=== PATIENT | male | born 1935 | race Caucasian/White ===

== ENCOUNTER 2022-04-24 07:57 | Outpatient (CLI) | payer MEDICARE, BC, SELFPAY ==
--- OUTSIDE RECORDS SUMMARY | 2022-04-24 08:06 | XMS_ITS | Continuity of Care Document ---
:1935 Author Organization [facility] Address [address] [place] [address] Phone Care Team Providers Name Role Phone Augustine Goodrich OD Unavailable Unavailable Allergies, Adverse Reactions, Alerts Substance Reaction Status Criticality PENICILLIN swellingswelling Active No Information Medications Medication Instructions Dosage Effective Dates Status Comment s (start - stop) OMEPRAZOLE take 2 capsule by Not Available - Active (unknown strength) oral route every day before a meal Procedures Procedure Date Scan Computerized; Retina Determ Refractive State Est Pt Complete Postop F/u Visit Incld Global Est Pt Detailed New Pt Complete Advance Directives Directive Yes / No Effective Date File Name No Information Encounters Encounter Practice Location Reason(s) Diagnoses Date Provider Provide rs Description For Visit Copied on Encounter [facility] Dilated Regular [facility] Eye [place], [place] eye exam astigmatism, [place]. Provid er: [address] (chief bilateralDrusen 1 [address] [facility] complaint) (degenerative) Kay[address], [place], [place], Refraction of macula, Rd, [place], [place], [address] [id number], [place] (chief bilateral Kayleigh CHAVIRA tel:[phone] complaint) [id number], [place], [address] , [place]. [place], tel:[phone] . tel:[phone] Sheyla Juarez floaters Encntr for f/u [facility], Field (chief exam aft trtmt [address] [place]. Provi philip: [address] complaint) for cond oth 9 [address] [facility] [address], [place], [place], neoplm Rd, [place], [address] [id number], [place] Larry CHAVIRA tel:[phone] , [place]. [address], tel: [place], [place], [id number]. tel:[phone] Est Pt [facility] Larry YAG Other secondary Colin Ref [facility], Field Consult cataract, left [facility]. Prov ider: [address] (chief eye 9 [address] [facility] complaint) Larry [address] Dr, [place], [place], Drive J, [address] [id number], [address] tel:[phone], [place], [address] [place], [place], [address], [address] [place]. . tel: tel: [phone] [facility] Larry blurry Other secondary Jul- [facility], Field vision cataract, left [place]. Provi philip: [address] (chief eyeDrusen 8 [address] [facility] complaint) (degenerative) [address], [place], [place], of macula, Rd, [place], [place], [address] [id number], [place] bilateral Kayleigh CHAVIRA tel:[phone], [place] , [address] , [place]. [place], tel: [phone] . tel:[phone] Family History Family Member Type Diagnosis Age At Onset No Information Payers Payer name Insurance type Covered libertarian ID Authorization(s ) [place] [id number] [facility] [id number] Social History Type Description Quantity Date Captured Comments Alcohol Use Details Caffeine Use Details No Tobacco Use Status Occasional cigarette smoker Smoking Status Current some day smoker Smoking Tobacco Use Cigarette: No Details Available Cigarett e: No Details Available Details Sex Male Chief Complaint And Reason For Visit From encounter dated '05/10/2021 07:30'. Dilated eye exam (chief complaint)Refraction (chief complaint) Reason For Referral Reason For Referral No Information Plan Of Treatment Date Type Action Status Appointment Gonzalez Tiwari BOOKED History Of Present Illness Encounter Date Complaint History Of Present I llness Dilated eye exam The 85 year old male presents for evaluation of Dilated eye exam in the right eye and left eye. It started about 1 year (s) ago. The symptom is constant. The condition is rajni cribed as seeing floaters. Pt states floaters make objects difficult to focus when covering his central vision. Pt denies flashes. Refraction The patient is prese nt for evaluation of Refraction in the right eye and left eye. It started about 1 year(s) ago. The sym ptom is constant. The condition is limiting patient' s ability to read. The condition is described as blur ring. Pt states he has had difficulties reading small print on smart phone. Pt states it is difficu lt to make out details in television OU. Pt st ates last Rx for glasses was about 2 years ago an d requests an update. YAG Consult The 83 year old male presents for evaluation of YAG Consult in the left eye. It started about 6 month(s) ago. The symptom is constant. The condition is described as blurrin g, feels like there's something in it and sees a chuy k/black spot to the left.S/P CE IOL 03/2017 elsewher e blurry vision The 82 year old male presents for evaluation of blurry vision in the left eye. It started about 1.5 month(s) ago. TIERRA wa s about 4 months ago. It occurs all the time. It aff ects both near and far vision. The symptom is const ant. The condition is not any better. The conditio n is described as blurring. In addition pt. c/o dul l headache around/behind left eye which intermitten. Functional Status Date Functional Assessment No Information Instructions Date Instruction Additional Informati on Return in [address] Bradshaw Related to Drusen (degenerative) of [facility] for Complete Exam. 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 macul a, bilateral Impression/Plan - Discussed diagnosis Re lated to Drusen (degenerative) of in detail with patient. Discussed macula , bilateral treatment options with patient. Use of vitamins has shown to improve the effects of ARMD. Use of Amsler grid was explained. Will continue to observe condition and or symptoms. Discussed risks of progression. Call if VA worsens. 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 Discussed bilate ral treatment options with patient. New glasses Rx was given today. 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 Shaw left eye Impression/Plan - Discussed all Related to Other secondary cataract, risks, benefits, alternatives, left eye procedures and recovery. Patient understands changing glasses will not improve vision. Patient desires to have surgery, recommend yag capsulotomy OS. Return in [address] Shaw for Re lated to Other secondary cataract, Cataract Consult. left eye Follow up - Return in [address] Leila amaral to Other secondary cataractColin for Cataract Consult. left eye Impression/Plan - Discussed diagnosis Re lated to Other secondary cataract, in detail with patient. Discussed left e ye treatment options with patient. Consult recommended [Cataract Specialist]. Discussed IOL lens options. Impression/Plan - Discussed diagnosis Re lated to Drusen (degenerative) of in detail with patient. Discussed macula , bilateral treatment options with patient. Use of vitamins has shown to improve the effects of ARMD. Use of Amsler grid was explained. Will continue to observe condition and or symptoms. Discussed risks of progression. Call if VA worsens. Assessments Type Assessment Date assessment Regular astigmatism, bilateral impression Regular astigmatism, bilateral: H52.223 assessment Drusen (degenerative) of macula, roberto sanchez impression Drusen (degenerative) of macula, roberto sanchez: H35.363 OU. Condition: established, stable Patient Care Teams Name Effective Dates (start - stop) Status M embers No Information
--- OUTSIDE RECORDS SUMMARY | 2022-04-24 08:06 | XMS_ITS | Continuity of Care Document ---
:1935 Author Organization [facility] Address [address] [place] [address] Phone Care Team Providers Name Role Phone Eliecer Chiu MD Unavailable Unavailable Allergies, Adverse Reactions, Alerts Substance Reaction Status Criticality Penicillins Active No Information Medications Medication Instructions Dosage Effective Dates Status Comment s (start - stop) METAMUCIL (unknown Not Available - Active strength) OMEPRAZOLE take 2 capsule by Not Available - Active (unknown strength) oral route every day before a meal magnesium 30 mg - Active tablet Procedures Procedure Date Offic/outpt E&m Estab Low-mod Ugi Endoscopy Offic/outpt E&m New Mod Sever Advance Directives Directive Yes / No Effective Date File Name Other Directive No N/A N/A WARNING:The information contained in this section is historical and is provided for information onlyand does not constitute a legal document or any assurance that the information is still accurate. Please verify the information with the vee of the legal document before using it for clinical purposes. Encounters Encounter Practice Location Reason(s) Diagnoses Date Provider Provide rs Description For Visit Copied on Encounter Offic/outpt [facility] .gerd GERD w/o Conor Referring E&m [facility] (chief esophagitis 9[address] Ronald Provider: Low-mod Medical complaint) 7 Carlos. [facility] [address] , [address] [facility], [facility] [address], [place] [address], [place], [place], [place], [place], [id number] [address] [id number], , [place]. Raffaele tel:[address], [place], tel:[phone] [place], [address]. [id number] tel:[phone] [facility] No Information Perdomo [facility] Antigoni Provider: Medical 7 Kelly Frandy [address] , [address] [facility], [address], [address], [address], [place], [place], [place], [place], [id number] [address] [id number], , [place]. [facility] tel:[address], [place], tel:[phone] [place], [address]. [id number] tel:[phone] Offic/outpt [facility] .gerd GERD w/o Jul- Perdomo Referring E&m [facility] (chief esophagitisFamily Antigoni P rovider: Sever Medical complaint) history of 7 Eliecer. Kelly Wise GERD malignant neoplasm [address] , [address] (chief of digestive [facility], [facility] complaint) [address], [address], [address], [place], [place], [place], [place], [id number] [address] [id number], , [place]. [facility] tel:[address], [place], tel:[phone] [place], [address]. [id number] tel:[phone] Family History Family Member Type Diagnosis Age At Onset Problem (finding) Family history of malignant ne oplasm of bone Problem (finding) Family history of Stomach Payers Payer name Insurance type Covered libertarian ID Authorization(s ) Medicare Claims Administrators ANAMARIA [id number] [facility] [id number] Social History Type Description Quantity Date Captured Comments Alcohol Use Details Caffeine Use Details No Tobacco Use Status No Information Smoking Status Former smoker Sex Male Vital Signs Date / Height Weight BMI Pulse Blood Temperature Respiratory Body Head Head Circ. Wt./Blake. BMI Pulse Inhaled Time: Rate Pressure Rate Surface Circumference Percenti le Percentile percentile Ox Ox Area 72.00 92.533 27.6 138/2017 in kg 7 mm[Hg] 9:00 (204.00 kg/m AM lbs) celsa (2) Chief Complaint And Reason For Visit From encounter dated '08/21/2017 08:45'. .gerd (chief complaint). Description: Patient comes for a follow-up for reflux. He had an EGD which r evealed mild gastritis H. pylori negative and biopsies of the lower esophagus revealed no inflammation or Carroll's esophagus. He continues to take omeprazole 20 mg daily and he reports that ifhe misses a dose he will have heartburn. His hoarseness and throat clearing is better. He does not remember getting a DEXA scan recently. Reason For Referral Reason For Referral No Information Plan Of Treatment Date Type Action Status Referral Ordered: ordered Ugi Endoscopy History Of Present Illness Encounter Date Complaint History Of Present I llness .gerd Patient comes for a follow-up for reflux. He had an EGD which revealed mild gastritis H. pylori negative and biopsies of the lowe r esophagus revealed no inflammation or Carroll's esophagus. He continues to take omeprazole 20 mg daily and he reports that if he misses a dose he will have heartburn. His hoars eness and throat clearing is better. He does not remember ge tting a DEXA scan recently. .gerd GERD The onset of the hea rtburn was gradual. The severity is mild-moderate. Durat ion: 15-30 minutes. The problem is not changing. The patien t reports heartburn. It occurs daily. Context: treatment w ith PPIs. The symptoms are aggravated by large meals. The sym ptoms are relieved by antacids and taking omeprazole 20 mg daily for years. Associated symptoms include chronic coug h, hoarseness, reflux and sore throat. Pertinent negatives include dysphagia, dyspnea, melena, nausea, pneumonitis and vomiting. Additional information: never had an egd, co lonoscopy 2016: polyps (done in [place]) Functional Status Date Functional Assessment No Information Instructions Date Instruction Additional Informati on No Information Assessments Type Assessment Date assessment GERD w/o esophagitis impression continue Omeprazole 20 mg daily. Advised the patient of the side effects of chronic PPI use includin g osteoporosis. He is going to follow up with his PCP for a DE XA scan. He currently is taking calcium daily. Other risk for chronic PPI use like C. difficile, coronary artery disease, r enal impairment and dementia were explained to the patient v pj understanding. Mental Status Date Cognitive Assessment Orientation - Oriented to ti me, place, person, situation. Patient Care Teams Name Effective Dates (start - stop) Status M embers No Information
--- OUTSIDE RECORDS SUMMARY | 2022-04-24 08:06 | XMS_ITS | Continuity of Care Document ---
:1935 Author Organization [facility] Address [address] [place] [address]- Care Team Providers Name Role Phone KELLY NICOLE Primary Care Physician Encounter [place]Bhupinder GRAY JEFFRY # [id number] Date(s): 09/16/20 - 09/16/21 [facility] [address] [place], [place] [address] Discharge Disposition: Routine Discharge Allergies, Adverse Reactions, Alerts Substance Reaction Severity Status penicillin G sodium swelling Moderate Active Immunizations Given and Recorded Vaccine Date Status Refusal Reason influenza virus vac, unspecified form. 05/06/21 Recorded influenza virus vac, unspecified form. 05/12/20 Recorded SARS-CoV-2 (COVID-19) mRNA BNT-162b2 vax1 11/01/20 Given SARS-CoV-2 (COVID-19) mRNA BNT-162b2 vax2 10/11/20 Given influenza virus vaccine, inactivated 06/09/19 Recorded influenza virus vaccine, inactivated 06/29/15 Given Influenza 06/03/18 Recorded influenza, inactive high-dose PF (IIV3) 06/14/17 Given influenza, split (purified surf antigen) 05/18/14 Given pneumococcal 13-valent vaccine 09/03/11 Recorded pneumococcal 23-valent vaccine 09/03/06 Recorded zoster vaccine live 09/03/99 Recorded 1Result Comment: verified by [id number] Comment: Verified by [id number] Medications albuterol 90 mcg/inh inhalation aerosol See Instructions, INHALE 1 PUFF BY MOUTH 4 TIMES DAILY NEEDED FOR 30 DAYS, # 8.5 inhalers, 0 Refill(s), Acute, Pharmacy: [id number], INHALE 1 PUFF BY MOUTH 4 TIMES DAILY NEEDED FOR 30 DAYS, 167 cm, 01/15/20 15:05:00 MST, Height, 96.9 kg, 05... Start Date: 02/10/20 Status: Orderedgabapentin 600 mg oral tablet 600 mg 1 tab, Oral, BID, # 180 tab, 1 Refill(s), Signed: 07/07/21 15:55:00 [facility], Maintenance, Pharmacy: [facility]/pharmacy #[id number], 1 tab Oral BID,x90 days, 167 cm, 07/07/21 15:41:00 MST, Height, 92.6 kg, 07/07/21 15:42:00 [facility], Weight Dosing Start Date: 07/07/21 Stop Date: 01/03/22 Status: Orderedmeclizine 25 mg oral tablet 25 mg 1 tab, Oral, TID, PRN Dizziness, # 90 tab, 1 Refill(s), Signed: 01/04/21 11:11:00 [facility], Maintenance, Pharmacy: [facility]/pharmacy #[id number], 1 tab Oral TID,x30 days,PRN:Dizziness, 167 cm, 01/04/21 10:48:00 [facility], Height, 95.5 kg, 01/04/21 10:50:00 [facility], Weigh... Start Date: 01/04/21 Stop Date: 03/05/21 Status: Orderedomeprazole 06/29/15 9:35:00 [facility], # Refills: 0 Start Date: 06/29/15 Status: Ordered Problem List Condition Effective Dates Status Health Status Informant Anxiety(Historically imported from EHR 06/30/13 Active migration)1 Diverticulitis(Confirmed) Active Erectile dysfunction(Confirmed) Active Large prostate(Historically imported 06/30/13 Active from EHR migration)2 Malignant melanoma of 06/30/13 Active skin(Historically imported from EHR migration)3 Obstructive sleep apnea on Active CPAP(Confirmed) 1Converted note: Onset date 06/30/2013. Problem automatically mapped to SNOMED code Anxiety ([id number]) from [facility] Chronic Conditions table on 02/22/2014.2 Converted note: Onset date 06/30/2013. Problem automatically mapped to SNOMED code Large prostate ([id number]) from [facility] Chronic Conditions table on 02/22/2014.3Converted note: Onset date 06/30/2013. Problem automatically mapped to SNOMED code Malignant melanoma of skin ([id number]) from [facility] Chronic Conditions table on 02/22/2014. Procedures Procedure Date Related Diagnosis Body Site Status Appendectomy Completed Tonsillectomy Completed Vasectomy Completed Social History Social History Type Response Tobacco Use: Former smoker, quit mor e than 30 days ago. Sex
== END 2022-04-24 07:58 | disposition home or self-care (01) ==
LOC: OP CLINIC 07:58
PROVIDERS: PCP Family Medicine; Visit Provider Internal Medicine Gastroenterology
DX: Z12.11 Encounter for screening for malignant neoplasm of colon (principal); K63.5 Polyp of colon; K57.30 Diverticulosis of large intestine without perforation or abscess without bleeding; Z86.010 Personal history of colon polyps
CPT/HCPCS: 45380; 88305; 99153; J2250; J3010